=== PATIENT | female | born 1940 | race African-American/Black ===

== ENCOUNTER 2020-05-13 18:03 | Emergency (ER) | payer MEDICARE, SELFPAY ==
[2020-05-13 18:06] VITALS: PULSE 104; RESP 20; TEMP 36.8; O2SAT 100
--- NOTE | 2020-05-13 18:09 | PC.NURSE ---
Attempted to obtain blood pressure x2 without success due to pt movement and removing the cuff. Pt refused BP.
--- NOTE | 2020-05-13 18:14 | ED.DENTAL ---
HPI - Dental/Oral General Chief complaint: Dental/Oral Stated complaint: TOOTH PAIN Time Seen by Provider: 05/13/20 18:14 Source: patient, EMS and RN notes reviewed Limitations: no limitations History of Present Illness HPI Narrative: Patient is 79 years old -[place] female came from assisted living with tooth pain at the right upper side, intermittent, for the last 4 weeks, patient was seen by a dentist recently and was told that there is nothing wrong with her teeth. Patient denies any fever, chills, nausea, vomiting, chest pain, shortness of breath, back pain, headache. Related Data Home Medications Medication Instructions Recorded Confirmed amlodipine 10 mg tablet 10 mg PO DAILY 02/01/19 aspirin 81 mg chewable tablet 81 mg PO DAILY 02/01/19 atorvastatin 40 mg tablet 40 mg PO DAILY 02/01/19 blood sugar diagnostic #10 each 02/01/19 ergocalciferol (vitamin D2) 1,250 50,000 unit PO WEEKLY 02/01/19 mcg (50,000 unit) capsule hydralazine 25 mg tablet 25 mg PO .BID with food tablet 02/01/19 insulin glargine 100 unit/mL (3 See Rx Instructions .ROUTE .COMPLEX 02/01/19 mL) subcutaneous pen insulin lispro 100 unit/mL See Rx Instructions .ROUTE .COMPLEX 02/01/19 subcutaneous pen latanoprost 0.005 % eye drops See Rx Instructions .ROUTE .COMPLEX 02/01/19 levothyroxine 100 mcg tablet 100 mcg PO DAILY 02/01/19 pen needle, diabetic 32 gauge x #50 each 02/01/19 3/16 Allergies Allergy/AdvReac Type Severity Reaction Status Date / Time cephalexin Allergy Unknown Unknown Verified 05/13/20 18:11 Cephalosporins Allergy Unknown Unknown Verified 05/13/20 18:11 codeine Allergy Unknown Unknown Verified 05/13/20 18:11 diazepam Allergy Unknown Unknown Verified 05/13/20 18:11 meperidine Allergy Unknown Unknown Verified 05/13/20 18:11 Penicillins Allergy Unknown Unknown Verified 05/13/20 18:11 Sulfa (Sulfonamide Allergy Unknown Unknown Verified 05/13/20 18:11 Antibiotics) sulfanilamide Allergy Unknown Unknown Verified 05/13/20 18:11 Review of Systems Review of Systems: Narrative: CONSTITUTIONAL: Denies fever, chills, or sweats. EYES: Denies visual changes, redness, or discharge. ENT: Denies rhinorrhea, congestion, sore throat, or otalgia. CARDIOVASCULAR: Denies chest pain, palpitations, or edema. RESPIRATORY: Denies cough or dyspnea. SKIN: Denies rash or itching. MUSCULOSKELETAL: Denies back pain, joint pain, or myalgia. NEUROLOGIC: Denies headache, numbness, or weakness. PSYCHIATRIC: Denies anxiety or depression. [facility] Past Medical History Medical History Anemia Ankle fracture, left Breast cancer CVA (cerebral vascular accident) Depression Diabetes mellitus GERD (gastroesophageal reflux disease) Glaucoma Hip fracture, right HLD (hyperlipidemia) HTN (hypertension) Hypothyroid Migraine Osteoporosis Pneumonia Tuberculosis UTI (urinary tract infection) Surgical History Surgical History H/O bilateral cataract extraction H/O total mastectomy of left breast H/O: hysterectomy History of reconstruction of left breast Hx of appendectomy Family History Family History Sibling Hypertension Carcinoma of colon Family history of thyroid disease Family history of glaucoma Asthma Family history of congestive heart failure Father Family history of coronary artery disease, Onset Age: 72 Patient's father is Other Diabetes mellitus Family history of malignant neoplasm Family history of malignant neoplasm of male breast Social History Social History Smoking status: Never smoker Alcohol intake: never Exam Narrative: Exam Narrative: General appearance: Well-developed, well-nourished Skin: Normal color Head: Normocephalic, nontraumatic Eyes: Clear conjunctiva
[2020-05-13] MEDS: ACETAMINOPHEN 325 MG TABLET 650 MG PO (18:32)
[2020-05-13] MEDS: IBUPROFEN 600 MG TABLET PO (18:33)
--- NOTE | 2020-05-13 18:35 | PC.NURSE ---
Called [place] [facility] to update them on pt's discharge status. No transportation available to come shrimp picker pt. Called pt's sister who also says she is unable to shrimp picker pt. Pt states there is nobody else she can call for a ride.
[2020-05-13 19:44] VITALS: BP 142/81; PULSE 94; RESP 16; O2SAT 99
== END 2020-05-13 19:46 ==
PROVIDERS: Emergency Provider Emergency Medicine; PCP Emergency Medicine
DX: K08.89 Other specified disorders of teeth and supporting structures (principal); E78.5 Hyperlipidemia, unspecified; I10 Essential (primary) hypertension; E11.9 Type 2 diabetes mellitus without complications; E03.9 Hypothyroidism, unspecified; H40.9 Unspecified glaucoma; K21.9 Gastro-esophageal reflux disease without esophagitis; M81.0 Age-related osteoporosis without current pathological fracture; Z85.3 Personal history of malignant neoplasm of breast; Z86.73 Personal history of transient ischemic attack (TIA), and cerebral infarction without residual deficits; Z87.440 Personal history of urinary (tract) infections; Z79.4 Long term (current) use of insulin; Z79.82 Long term (current) use of aspirin; Z98.42 Cataract extraction status, left eye; Z98.41 Cataract extraction status, right eye; Z90.12 Acquired absence of left breast and nipple
CPT/HCPCS: 99283; A9270

== ENCOUNTER 2020-11-02 15:41 | Emergency (ER) | payer MEDICARE, SELFPAY ==
--- NOTE | ~2020-11-02 | XR_ITS ---
EXAMINATION: XR chest 2V 11/02/2020 17:28 INDICATION: Leukocytosis PROCEDURE: AP and lateral views of the chest COMPARISON: Comparison to multiple prior studies sequentially, with oldest reviewed study dated 05/21. FINDINGS: The lungs are clear. The cardiomediastinal silhouette is within normal limits. There are no pleural effusions. There is no pneumothorax suspected. There are surgical clips in the left axil la. IMPRESSION: 1: NO ACUTE CARDIOPULMONARY DISEASE. Reviewed, dictated and finalized at location A.
[2020-11-02 15:44] VITALS: BP 180/82; PULSE 88; RESP 16; TEMP 36.7; O2SAT 100
[2020-11-02 15:52] LABS: Glucose Point of Care 97 mg/dl (65-105)
[2020-11-02 16:01] LABS: Hemoglobin 9.7 g/dL (12.0-15.0); Mean Corpuscular HGB Conc 27.7 g/dl (32-36); Mean Corpuscular Hemoglobin 17.3 pg (26-34); Mean Corpuscular Volume 62.4 fl (80-100); Platelet Count Result 427 k/mm3 (150-375); Red Blood Count 5.61 M/mm3 (4.2-5.4); Red Cell Distribution Width 21.9 % (11.5-14.5); White Blood Count 15.4 K/mm3 (4.5-10.0)
--- NOTE | 2020-11-02 16:01 | ED.GENADULT ---
HPI - General Adult General Chief complaint: Recheck/Abnormal Lab/Rx Stated complaint: elevated WBC Time Seen by Provider: 11/02/20 15:45 Source: patient History of Present Illness HPI narrative: Patient is 80 y/o female sent here abnormal labs. She reportedly had high WBC. Patient states that she feels well and she was told that she had a infection. Related Data Home Medications Medication Instructions Recorded Confirmed amlodipine 10 mg tablet 10 mg PO DAILY 02/01/19 blood sugar diagnostic #10 each 02/01/19 insulin glargine 100 unit/mL (3 45 unit SUBCUT HS 02/01/19 mL) subcutaneous pen insulin lispro 100 unit/mL See Rx Instructions .ROUTE .COMPLEX 02/01/19 subcutaneous pen pen needle, diabetic 32 gauge x #50 each 02/01/1905/09 citalopram 20 mg PO DAILY 11/02/20 clonidine 1 patch TRANSDERMAL WEEKLY 11/02/20 levothyroxine 112 mcg PO DAILY 11/02/20 Allergies Allergy/AdvReac Type Severity Reaction Status Date / Time cephalexin Allergy Unknown Unknown Verified 11/02/20 16:00 Cephalosporins Allergy Unknown Unknown Verified 11/02/20 16:00 codeine Allergy Unknown Unknown Verified 11/02/20 16:00 diazepam Allergy Unknown Unknown Verified 11/02/20 16:00 meperidine Allergy Unknown Unknown Verified 11/02/20 16:00 Penicillins Allergy Unknown Unknown Verified 11/02/20 16:00 Sulfa (Sulfonamide Allergy Unknown Unknown Verified 11/02/20 16:00 Antibiotics) sulfanilamide Allergy Unknown Unknown Verified 11/02/20 16:00 Review of Systems Constitutional: Constitutional: Denies chills, Denies fever(s), Denies headache(s) and Denies weakness Eyes: Eyes: Denies blurry vision ENT: Denies headache(s) and Denies neck pain Cardiovascular: Cardiovascular: Denies chest pain and Denies dyspnea Respiratory: Respiratory: Denies cough and Denies dyspnea Gastrointestinal: Gastrointestinal: Denies abdominal pain, Denies diarrhea, Denies nausea and Denies vomiting Genitourinary: Genitourinary: Denies hematuria and Denies dysuria Musculoskeletal: Musculoskeletal: Denies back pain and Denies neck pain Neurologic: Denies headache(s) and Denies weakness [facility] Past Medical History Medical History Anemia Ankle fracture, left Breast cancer CVA (cerebral vascular accident) Depression Diabetes mellitus GERD (gastroesophageal reflux disease) Glaucoma Hip fracture, right HLD (hyperlipidemia) HTN (hypertension) Hypothyroid Migraine Osteoporosis Pneumonia Tuberculosis UTI (urinary tract infection) Surgical History Surgical History H/O bilateral cataract extraction H/O total mastectomy of left breast H/O: hysterectomy History of reconstruction of left breast Hx of appendectomy Family History Family History Sibling Hypertension Carcinoma of colon Family history of thyroid disease Family history of glaucoma Asthma Family history of congestive heart failure Father Family history of coronary artery disease, Onset Age: 72 Patient's father is Other Diabetes mellitus Family history of malignant neoplasm Family history of malignant neoplasm of male breast Social History Social History Smoking status: Never smoker Alcohol intake: never Exam Const: General: no acute distress and well developed Orientation/consciousness: oriented to person, oriented to place, oriented to time and patient oriented x3 HENMT: Head: normocephalic Ears: external ears normal General nose exam: Normal external nose present Eyes: General: appearance normal, both eyes and all related structures Conjunctivae: conjunctivae normal Neck: Neck: normal visual inspection and full ROM Chest: Chest palpation & inspection: normal inspection of the chest and no tenderness Resp: Effort & Inspection: n
[2020-11-02 16:29] LABS: Band Neutrophils Percent 1 % (0-6); Eosinophils Absolute Manual 0.15 K/mm3 (0.02-0.5); Eosinophils Percent Manual 1 % (0-4); Lymphocytes Absolute Manual 6.77 K/mm3 (1.1-4.5); Monocytes Absolute Manual 0.92 K/mm3 (0.1-0.90); Monocytes Percent Manual 6 % (3-9); Neutrophils Absolute Manual 7.54 K/mm3 (1.7-7.2); Neutrophils Percent Manual 48 % (46-73); Total Cells Counted 100
[2020-11-02 16:30] LABS: Anisocytosis 3+ (NORMAL); Hypochromasia 1+ (NORMAL); Platelet Estimate Increased (Adequate)
[2020-11-02 16:36] LABS: Anion Gap 5 mmol/L (8-16); Blood Urea Nitrogen 17 mg/dL (7-17); Calcium 8.8 mg/dL (8.4-10.2); Carbon Dioxide 25 mmol/L (22-30); Chloride 107 mmol/L (98-107); Estimated CRCL calculation 46 ml/min; Estimated Glomerular Filt Rate > 60; Glucose 90 mg/dL (65-110); Potassium 3.6 mmol/L (3.4-5.0); Sodium 137 mmol/L (137-145)
[2020-11-02 17:42] LABS: Add Urine Microscopic? YES; Appearance Urine Clear (Clear); Bilirubin Urine Negative (Negative); Blood Urine Negative (Negative); Color Urine Yellow (Yellow); Glucose Urine UA Negative (Negative); Ketones Urine Negative (Negative); Leukocyte Esterase Ur Negative LEU/UL (Negative); Mucus Urine Few /lpf; Nitrate Urine Negative (Negative); Protein Urine Negative (Negative); RBC Urine 0-2 /hpf (0-2); Specific Grav Ur 1.023 (1.001-1.035); Squamous Epithelial Cell Urine Occasional /hpf (Few); WBC Urine 0-3 /hpf
--- NOTE | 2020-11-02 18:10 | PC.NURSE ---
pts sister zack contacted. states will be unable to take pt home at this time. [facility] contacted
[2020-11-02 18:53] VITALS: BP 196/88; PULSE 94; RESP 18; O2SAT 100
== END 2020-11-02 18:45 ==
PROVIDERS: Emergency Provider Emergency Medicine; PCP Emergency Medicine
DX: D72.829 Elevated white blood cell count, unspecified (principal); E11.9 Type 2 diabetes mellitus without complications; H40.9 Unspecified glaucoma; E78.5 Hyperlipidemia, unspecified; I10 Essential (primary) hypertension; E03.9 Hypothyroidism, unspecified; K21.9 Gastro-esophageal reflux disease without esophagitis; M81.0 Age-related osteoporosis without current pathological fracture; Z85.3 Personal history of malignant neoplasm of breast; Z86.73 Personal history of transient ischemic attack (TIA), and cerebral infarction without residual deficits; Z87.01 Personal history of pneumonia (recurrent); Z87.440 Personal history of urinary (tract) infections; Z98.42 Cataract extraction status, left eye; Z98.41 Cataract extraction status, right eye; Z90.12 Acquired absence of left breast and nipple; Z79.4 Long term (current) use of insulin
CPT/HCPCS: 36415; 71046; 80048; 81001; 82948; 85025; 85055; 87040; 99283

== ENCOUNTER 2021-04-28 16:10 | Emergency (ER) | payer MEDICARE, SELFPAY ==
--- NOTE | ~2021-04-28 | XR_ITS ---
XR humerus LT 04/28/2021 16:50 INDICATION: Left arm pain PROCEDURE: 2 views left humerus COMPARISON: No prior studies for comparison. FINDINGS: Fracture, dislocation or subluxation is not identified. The soft tissues appear within norm al limits. No foreign bodies are identified. IMPRESSION: 1: NO ACUTE BONE OR JOINT ABNORMALITY IDENTIFIED. Reviewed, dictated and finalized at location A. W MACHINE SET UP OPERATOR
--- NOTE | ~2021-04-28 | XR_ITS ---
XR chest 1V portable 04/28/2021 16:52 Indication: Cough. Hypertension. Procedure: AP portable chest Comparison: Comparison to multiple prior studies sequentially, with oldest reviewed study dated 07/26/2017. Findings: Patchy bilateral airspace disease, compatible with pneumonia. Heart size normal. No pleural effusion or pneumothorax. No acute osseous abnormality. Impression: 1: Patchy bilateral airspace disease, compatible with pneumonia. Reviewed, dictated and finalized at location A. TRONIC PREPRESS SYSTEM OPERATOR Impression: 1: Patchy bilateral airspace disease, compatible with pneumonia.
[2021-04-28 16:16] VITALS: BP 141/108; PULSE 92; RESP 18; TEMP 36.4; O2SAT 100
--- NOTE | 2021-04-28 16:38 | ECG_ITS ---
Measurements Intervals [place] Rate: 91 P: 50 TX: 170 QRS: -27 QRSD: 82 T: 82 QT: 290 QTc: 357 Interpretive Statements SINUS RHYTHM BORDERLINE LEFT AXIS DEVIATION [QRS AXIS < -20] NONSPECIFIC ST-WAVE ABNORMALITY BORDERLINE ECG NO SIGNIFICANT CHANGE COMPARED TO ECG 02/17/2019 08:19:47 Electronically Signed On 04-29-2021 11:00:21 AUTOMATIC SERGING MACHINE OPERATOR by Elliot Lott M.D.
--- NOTE | 2021-04-28 17:09 | ED.AMS ---
HPI - Altered Mental Status General Chief Complaint: Altered Mental Status Stated Complaint: altered Time Seen by Provider: 04/28/21 16:23 Source: patient and EMS Mode of arrival: EMS History of Present Illness HPI narrative: This is a 80 year old female with history of CVA with left side hemiparesis, ataxia, hypertension who presents for evaluation of being sassy . Nursing staff reported that patient has been having left arm pain, and they have been offering her tylenol. They report that she refuses to take tylenol and she became sassy. Patient reports she has had left arm pain intermittently since she suffered her stroke. She denies having any pain now. She admits to declining tylenol because it does not work, and she states a cream helps her pain during physical therapy. Patient is oriented to person and place which is her normal mentation. She has cough but she denies chest pain, shortness of breath, abdominal pain, headache, nausea. Patient denies any recent falls or trauma. Related Data Home Medications Medication Instructions Recorded Confirmed amlodipine 10 mg tablet 10 mg PO DAILY 02/01/19 blood sugar diagnostic #10 each 02/01/19 insulin glargine 100 unit/mL (3 45 unit SUBCUT HS 02/01/19 mL) subcutaneous pen insulin lispro 100 unit/mL See Rx Instructions .ROUTE .COMPLEX 02/01/19 subcutaneous pen pen needle, diabetic 32 gauge x #50 each 02/01/1905/09 citalopram 20 mg PO DAILY 11/02/20 clonidine 1 patch TRANSDERMAL WEEKLY 11/02/20 levothyroxine 112 mcg PO DAILY 11/02/20 Allergies Allergy/AdvReac Type Severity Reaction Status Date / Time cephalexin Allergy Unknown Unknown Verified 11/02/20 16:00 Cephalosporins Allergy Unknown Unknown Verified 11/02/20 16:00 codeine Allergy Unknown Unknown Verified 11/02/20 16:00 diazepam Allergy Unknown Unknown Verified 11/02/20 16:00 meperidine Allergy Unknown Unknown Verified 11/02/20 16:00 Penicillins Allergy Unknown Unknown Verified 11/02/20 16:00 Sulfa (Sulfonamide Allergy Unknown Unknown Verified 11/02/20 16:00 Antibiotics) sulfanilamide Allergy Unknown Unknown Verified 11/02/20 16:00 Review of Systems Review of Systems: All systems reviewed & are unremarkable except as noted in HPI and below Constitutional: Constitutional: Denies chills and Denies fever(s) Cardiovascular: Cardiovascular: Denies chest pain Respiratory: Respiratory: Reports cough, Denies dyspnea and Denies wheezing Gastrointestinal: Gastrointestinal: Denies abdominal pain, Denies diarrhea, Denies nausea and Denies vomiting PMFSH Past Medical History Medical History Anemia Ankle fracture, left Breast cancer CVA (cerebral vascular accident) Depression Diabetes mellitus GERD (gastroesophageal reflux disease) Glaucoma Hip fracture, right HLD (hyperlipidemia) HTN (hypertension) Hypothyroid Migraine Osteoporosis Pneumonia Tuberculosis UTI (urinary tract infection) Surgical History Surgical History H/O bilateral cataract extraction H/O total mastectomy of left breast H/O: hysterectomy History of reconstruction of left breast Hx of appendectomy Family History Family History Sibling Hypertension Carcinoma of colon Family history of thyroid disease Family history of glaucoma Asthma Family history of congestive heart failure Father Family history of coronary artery disease, Onset Age: 72 Patient's father is Other Diabetes mellitus Family history of malignant neoplasm Family history of malignant neoplasm of male breast Social History Social History Smoking status: Never smoker Alcohol intake: never Exam Const: General: alert Orientation/consciousness: patient oriented x3 Eyes: EOM: EOMs intact bilate
[2021-04-28 17:10] LABS: Hematocrit 40.7 % (37.0-47.0); Hemoglobin 12.2 g/dL (12.0-15.0); Immature Platelet Fraction Pct 16.5 % (0.9-11.2); Mean Corpuscular Hemoglobin 21.8 pg (26-34); Mean Corpuscular Volume 72.7 fl (80-100); Platelet Count Result 250 k/mm3 (150-375); Red Cell Distribution Width 19.6 % (11.5-14.5); White Blood Count 9.6 K/mm3 (4.5-10.0)
[2021-04-28 17:19] LABS: Alanine Aminotransferase 26 U/L (4-35); Albumin Level 3.3 g/dL (3.5-5.1); Alkaline Phosphatase 121 U/L (38-126); Anion Gap 5 mmol/L (8-16); Aspartate Amino Transferase 29 U/L (14-36); Bilirubin,Total 0.6 mg/dL (0.2-1.3); Blood Urea Nitrogen 14 mg/dL (7-17); Calcium 8.6 mg/dL (8.4-10.2); Carbon Dioxide 29 mmol/L (22-30); Chloride 105 mmol/L (98-107); Estimated Glomerular Filt Rate > 60; Glucose 133 mg/dL (65-110); INR 1.1; Potassium 3.3 mmol/L (3.4-5.0); Prothrombin Time 13.6 Seconds (11.1-14.7); Sodium 139 mmol/L (137-145)
[2021-04-28 17:20] LABS: Partial Thromboplastin Time 27.5 SECONDS (22.3-36.8)
[2021-04-28 17:38] LABS: Atypical Lymphocytes Present; Band Neutrophils Percent 3 % (0-6); Eosinophils Absolute Manual 0.09 K/mm3 (0.02-0.5); Eosinophils Percent Manual 1 % (0-4); Large Platelets Present; Lymphocytes Absolute Manual 3.26 K/mm3 (1.1-4.5); Monocytes Absolute Manual 0.48 K/mm3 (0.1-0.90); Monocytes Percent Manual 5 % (3-9); Neutrophils Absolute Manual 5.76 K/mm3 (1.7-7.2); Neutrophils Percent Manual 57 % (46-73); Platelet Estimate Adequate (Adequate); Total Cells Counted 100
[2021-04-28 17:39] LABS: Anisocytosis 3+ (NORMAL); Hypochromasia 1+ (NORMAL)
[2021-04-28 17:42] LABS: Add Urine Microscopic? YES; Appearance Urine Clear (Clear); Bilirubin Urine Negative (Negative); Blood Urine Negative (Negative); Color Urine Yellow (Yellow); Glucose Urine UA 1+ mg/dL (Negative); Ketones Urine Negative (Negative); Leukocyte Esterase Ur Negative LEU/UL (Negative); Nitrate Urine Negative (Negative); Protein Urine Negative (Negative); RBC Urine 0-2 /hpf (0-2); Specific Grav Ur 1.026 (1.001-1.035); WBC Urine 0-3 /hpf
[2021-04-28 17:43] LABS: Acanthocytes 1+ (NORMAL)
[2021-04-28 17:44] LABS: Ovalocytes 1+ (NORMAL)
[2021-04-28 18:00] LABS: SARS-CoV-2 RNA PCR Negative
[2021-04-28] MEDS: POTASSIUM CHLORIDE 20 MEQ PACKET (FOR LIQUID) 40 MEQ PO (18:19)
[2021-04-28 18:37] VITALS: BP 149/89; PULSE 89; RESP 18; O2SAT 100
[2021-04-28 19:00] VITALS: BP 157/80; PULSE 93; RESP 20; O2SAT 99
[2021-04-28 21:00] VITALS: BP 158/74; PULSE 89; RESP 20; O2SAT 100
[2021-04-28 23:00] VITALS: BP 155/85; PULSE 90; RESP 19; O2SAT 100
[2021-04-29] VITALS: BP 177/87; PULSE 89; RESP 20; O2SAT 99
[2021-04-29 04:04] VITALS: BP 177/91; PULSE 93; RESP 16; O2SAT 100
--- NOTE | 2021-04-29 06:40 | PC.NURSE ---
IV removed, cannula intact. Covered with gauze and tape.
== END 2021-04-29 06:45 ==
PROVIDERS: Emergency Provider General Practice; PCP Emergency Medicine
DX: J18.9 Pneumonia, unspecified organism (principal); E87.6 Hypokalemia; M79.602 Pain in left arm; Z20.822 Contact with and (suspected) exposure to COVID-19; I69.954 Hemiplegia and hemiparesis following unspecified cerebrovascular disease affecting left non-dominant side; I69.993 Ataxia following unspecified cerebrovascular disease; I10 Essential (primary) hypertension; E11.9 Type 2 diabetes mellitus without complications; E78.5 Hyperlipidemia, unspecified; M81.0 Age-related osteoporosis without current pathological fracture; K21.9 Gastro-esophageal reflux disease without esophagitis; H40.9 Unspecified glaucoma; E03.9 Hypothyroidism, unspecified; F32.A Depression, unspecified; Z87.440 Personal history of urinary (tract) infections; Z87.01 Personal history of pneumonia (recurrent); Z85.3 Personal history of malignant neoplasm of breast; Z86.11 Personal history of tuberculosis; Z79.4 Long term (current) use of insulin; Z98.42 Cataract extraction status, left eye; Z98.41 Cataract extraction status, right eye; Z90.12 Acquired absence of left breast and nipple; R94.31 Abnormal electrocardiogram [ECG] [EKG]
CPT/HCPCS: 36415; 51701; 71045; 73060; 80053; 81001; 85025; 85055; 85610; 85730; 93005; 99284; A9270; C9803; U0003; U0005

== ENCOUNTER 2021-08-21 10:16 | Emergency (ER) | payer MEDICARE, MEDICAID, SELFPAY ==
--- NOTE | ~2021-08-21 | XR_ITS ---
EXAMINATION: XR knee LT 2V DATE: 08/21/2021 12:06 INDICATION: Left knee pain after fall, initial encounter TECHNIQUE: Two views of the left knee were obtained. COMPARISON: None. FINDINGS: A lucency projects at the upper outer aspect of the left knee which could involve the العلي la or femoral condyle. There is mild tricompartmental osteoarthritis characterized by tiny marginal o steophytes. There is a large joint effusion. Soft tissue swelling is present. IMPRESSION: 1. Lucency of the upper outer knee which could reflect a nondisplaced fracture of the patellar distal femur. Assessment limited on this two view examination. Reviewed, dictated and finalized at location A.
[2021-08-21 10:14] VITALS: BP 143/91; PULSE 78; RESP 18; TEMP 36.8; O2SAT 100
--- NOTE | 2021-08-21 11:32 | PC.NURSE ---
Palma (sister - POA) requests update on pt. CELL # [phone]
--- NOTE | 2021-08-21 11:36 | ED.LOWEXIN ---
HPI - Extremity Injury (Lower) General Chief Complaint: Extremity Injury, Lower Stated Complaint: L patellar fx Time Seen by Provider: 08/21/21 11:24 History of Present Illness HPI Narrative: 81-year-old female with a history of CVA with residual left sided weakness here from her nursing facility for evaluation of left knee pain after a fall this morning. Patient states she was reaching for an item on her bedside table when she reached too far and rolled off of the bed, striking her knee. Currently reporting knee pain. XR at nursing facility showed possible patellar fracture. Patient does not usually walk and is a full assist for transfers due to her chronic L sided weakness. She has intact sensation distal to her knee pain and is able to move her foot. Related Data Home Medications Medication Instructions Recorded Confirmed citalopram 20 mg tablet 20 mg PO DAILY 11/02/20 clonidine 0.3 mg/24 hr weekly 1 patch transdermal WEEKLY 11/02/20 transdermal patch levothyroxine 112 mcg capsule 112 mcg PO DAILY 11/02/20 Allergies Allergy/AdvReac Type Severity Reaction Status Date / Time cephalexin Allergy Unknown Unknown Verified 08/21/21 10:26 Cephalosporins Allergy Unknown Unknown Verified 08/21/21 10:26 codeine Allergy Unknown Unknown Verified 08/21/21 10:26 diazepam Allergy Unknown Unknown Verified 08/21/21 10:26 meperidine Allergy Unknown Unknown Verified 08/21/21 10:26 Penicillins Allergy Unknown Unknown Verified 08/21/21 10:26 Sulfa (Sulfonamide Allergy Unknown Unknown Verified 08/21/21 10:26 Antibiotics) sulfanilamide Allergy Unknown Unknown Verified 08/21/21 10:26 [facility] Past Medical History Medical History Anemia Ankle fracture, left Breast cancer CVA (cerebral vascular accident) Depression Diabetes mellitus GERD (gastroesophageal reflux disease) Glaucoma Hip fracture, right HLD (hyperlipidemia) HTN (hypertension) Hypothyroid Migraine Osteoporosis Pneumonia Tuberculosis UTI (urinary tract infection) Surgical History Surgical History H/O bilateral cataract extraction H/O total mastectomy of left breast H/O: hysterectomy History of reconstruction of left breast Hx of appendectomy Family History Family History Sibling Hypertension Carcinoma of colon Family history of thyroid disease Family history of glaucoma Asthma Family history of congestive heart failure Father Family history of coronary artery disease, Onset Age: 72 Patient's father is Other Diabetes mellitus Family history of malignant neoplasm Family history of malignant neoplasm of male breast Social History Social History Smoking status: Never smoker Alcohol intake: never Exam Narrative: APPEARANCE: No acute distress, nontoxic, resting in bed EYES: EOMI HEENT: Normocephalic, atraumatic, OMM RESPIRATORY: No respiratory distress Clear to auscultation bilaterally with no rhonchi wheezing or rales. CARDIOVASCULAR: Doppler signals heard to DP/PT bilaterally. Regular rate and rhythm without murmurs rubs or gallops. ABDOMINAL: Soft, nontender, nondistended, no rebound or guarding MUSCULOSKELETAL: Tender to palpation over proximal patella, very mild swelling. No tenderness to palpation over left foot, ankle, femur. No clubbing, cyanosis or edema. NEURO: L sided weakness, slurred speech. Awake and alert. Following commands. SKIN: Warm, dry. No rashes lesions or abrasions PSYCHIATRIC: Normal affect/mood, Course Vital Signs Vital signs: Vital Signs Temperature 98.3 F 08/21/21 10:14 Pulse Rate 78 08/21/21 10:14 Respiratory Rate 18 08/21/21 10:14 Blood Pressure 143/91 H 08/21/21 10:14 Pulse Oximetry 100 08/21/21 10:14 Oxygen Delivery Room Air 08/21/21 10:14 Temperature 98.3 F
[2021-08-21 12:32] VITALS: BP 144/92; PULSE 72; RESP 17; O2SAT 100
[2021-08-21] MEDS: ACETAMINOPHEN 325 MG TABLET 650 MG PO (13:47)
[2021-08-21 13:48] VITALS: BP 139/89; PULSE 77; RESP 15; O2SAT 99
--- NOTE | 2021-08-21 14:50 | PC.NURSE ---
Pt moved to and placed on fall alarm. Awaiting transport.
== END 2021-08-21 15:41 ==
PROVIDERS: Emergency Provider Emergency Medicine; PCP Emergency Medicine
DX: S82.002A Unspecified fracture of left patella, initial encounter for closed fracture (principal); I69.954 Hemiplegia and hemiparesis following unspecified cerebrovascular disease affecting left non-dominant side; E11.9 Type 2 diabetes mellitus without complications; E78.5 Hyperlipidemia, unspecified; I10 Essential (primary) hypertension; E03.9 Hypothyroidism, unspecified; M81.0 Age-related osteoporosis without current pathological fracture; K21.9 Gastro-esophageal reflux disease without esophagitis; Z85.3 Personal history of malignant neoplasm of breast; Z87.440 Personal history of urinary (tract) infections; Z86.2 Personal history of diseases of the blood and blood-forming organs and certain disorders involving the immune mechanism; Z87.01 Personal history of pneumonia (recurrent); Z98.42 Cataract extraction status, left eye; Z98.41 Cataract extraction status, right eye; Z90.12 Acquired absence of left breast and nipple; Z79.4 Long term (current) use of insulin; W06.XXXA Fall from bed, initial encounter
CPT/HCPCS: 73560; 99284; A9270

== ENCOUNTER 2021-10-08 17:27 | Emergency (ER) | payer MEDICARE, MEDICAID, SELFPAY ==
[2021-10-08] VITALS (9 sets, daily range): BP systolic 147–176; BP diastolic 63–111; PULSE 79–85; RESP 14–18; TEMP 36.6; O2SAT 97–100
--- NOTE | ~2021-10-08 | CT_ITS ---
EXAMINATION: CT cervical spine wo con DATE: 10/08/2021 18:25 INDICATION: Head injury. TECHNIQUE: Computed tomography (CT) of the cervical spine was performed without intravenous contrast. Automated exposure control and iterative reconstruction technique were employed. The dose-length pro duct was 445.49 mGy-cm. COMPARISON: None FINDINGS: Calcified mediastinal lymph nodes are consistent with old granulomatous disease. There is a multinodular goiter. There is 2 mm anterolisthesis of C3 on C4 and C4 on C5 and 2 mm retrolisthesis of C6 on C7. Vertebral body heights are normal. There is mildly decreased disc height at C3-C4 and C4 -C5, moderately decreased disc height at C5-C6, and severely decreased disc height at C6-C7. The foll owing disc levels are specifically discussed: C2-C3: There is mild bilateral uncovertebral joint osteoarthritis. There is severe right and mild lef t facet joint osteoarthritis. There is mild right neural foraminal stenosis. There is no central amado l stenosis. C3-C4: There is mild bilateral uncovertebral joint osteoarthritis. There is severe bilateral facet nimisha int osteoarthritis. There is mild bilateral neural foraminal stenosis. There is mild central canal st enosis. C4-C5: There is moderate right and mild left uncovertebral joint osteoarthritis. There is severe righ t and mild left facet joint osteoarthritis. There is mild bilateral neural foraminal stenosis. There is mild central canal stenosis. C5-C6: There is severe bilateral uncovertebral joint osteoarthritis. There is mild bilateral facet nimisha int osteoarthritis. There is mild bilateral neural foraminal stenosis. There is mild central canal st enosis. C6-C7: There is severe bilateral uncovertebral joint osteoarthritis. There is mild bilateral facet nimisha int osteoarthritis. There is moderate bilateral neural foraminal stenosis. There is mild central amado l stenosis. C7-T1: There is no uncovertebral joint osteoarthritis. There is moderate bilateral facet joint osteoa rthritis. There is mild bilateral neural foraminal stenosis. There is no central canal stenosis. IMPRESSION: 1. No fracture. 2. Severe cervical spondylosis. Reviewed, dictated and finalized at location A.
--- NOTE | ~2021-10-08 | CT_ITS ---
EXAMINATION: CT brain wo con DATE: 10/08/2021 18:25 INDICATION: Head injury. TECHNIQUE: Computed tomography (CT) of the head was performed without intravenous contrast. The mA wa s adjusted according to patient size. Iterative reconstruction technique was employed. The dose-lengt h product was 605.33 mGy-cm. COMPARISON: Head CT 02/17/2019 FINDINGS: There is a small old infarct in right cerebellum. There are scattered areas of low attenuat ion in the cerebral white matter. There is no intracranial hemorrhage, acute infarction, or abnormal intracranial mass lesion. There are old infarcts in the bilateral basal ganglia and left thalamus. Th e ventricles are normal in size. There is mild mucosal thickening in the paranasal sinuses. There are likely changes of ocular lens replacement surgeries. The mastoid air cells are normal. IMPRESSION: 1. Old infarcts in the right cerebellum, bilateral basal ganglia, and left thalamus. 2. Moderate nonspecific cerebral white matter disease, which likely represents chronic small vessel i schemic disease. Reviewed, dictated and finalized at location A. IMPRESSION: 1. Old infarcts in the right cerebellum, bilateral basal ganglia, and left thal amus. 2. Moderate nonspecific cerebral white matter disease, which likely represents chronic small vessel ischemic disease.
--- NOTE | ~2021-10-08 | XR_ITS ---
EXAMINATION: XR knee LT min 4V DATE: 10/08/2021 18:14 INDICATION: Left knee pain. TECHNIQUE: 5 views of left knee were obtained. COMPARISON: Left knee radiograph 08/21/2021 FINDINGS: There is a nondisplaced stellate fracture of patella. There is sclerosis at a fracture line , consistent with healing. Osteopenia is noted. There is mild tricompartmental osteoarthritis. There is a small knee joint effusion. IMPRESSION: 1. Healing nondisplaced stellate fracture of patella. 2. Mild left knee osteoarthritis. 3. Small left knee joint effusion. Reviewed, dictated and finalized at location A.
--- NOTE | 2021-10-08 17:49 | ED.FALL ---
HPI - Fall General Chief Complaint: Fall Stated Complaint: Ground level fall Time Seen by Provider: 10/08/21 17:48 Source: patient and old records reviewed Mode of arrival: EMS Limitations: no limitations History of Present Illness HPI Narrative: Patient is a 81 y/o female who presents to the ED via EMS with c/o fall. Patient is a resident of [facility]. Hx of CVA with residual speech deficits and left sided weakness. Patient does not ambulate and is a full assist. She reports she was sitting in her wheelchair today and was getting ready to go down to dinner. She states she reached over to get something out of her drawer when she fell forward out of her wheelchair. She landed on her left knee. Complains of pain to the left knee. Denies any other pain. Also hit her head but denies loss of consciousness. No headache, vision changes, dizziness, significant neck pain. No blood thinners. Per patient's old records, she was diagnosed with a left patellar fracture on 08/21. Orthopedics was consulted at that time and recommended Dru bandage for compression. Patient is nonambulatory. Related Data Home Medications Medication Instructions Recorded Confirmed citalopram 20 mg tablet 20 mg PO DAILY 11/02/20 clonidine 0.3 mg/24 hr weekly 1 patch transdermal WEEKLY 11/02/20 transdermal patch levothyroxine 112 mcg capsule 112 mcg PO DAILY 11/02/20 Allergies Allergy/AdvReac Type Severity Reaction Status Date / Time cephalexin Allergy Unknown Unknown Verified 08/21/21 10:26 Cephalosporins Allergy Unknown Unknown Verified 08/21/21 10:26 codeine Allergy Unknown Unknown Verified 08/21/21 10:26 diazepam Allergy Unknown Unknown Verified 08/21/21 10:26 meperidine Allergy Unknown Unknown Verified 08/21/21 10:26 Penicillins Allergy Unknown Unknown Verified 08/21/21 10:26 Sulfa (Sulfonamide Allergy Unknown Unknown Verified 08/21/21 10:26 Antibiotics) sulfanilamide Allergy Unknown Unknown Verified 08/21/21 10:26 Review of Systems Review of Systems: CONSTITUTIONAL: Denies fever. EYES: Denies visual changes. CARDIOVASCULAR: Denies chest pain. RESPIRATORY: Denies dyspnea. GASTROINTESTINAL: Denies abdominal pain, nausea, vomiting. MUSCULOSKELETAL: Reports left knee pain. Denies neck pain, back pain. NEUROLOGIC: Reports head injury, chronic left-sided weakness. Denies LOC, headache, numbness. All systems reviewed & are unremarkable except as noted in HPI and below PMFSH Past Medical History Medical History Anemia Ankle fracture, left Breast cancer CVA (cerebral vascular accident) Depression Diabetes mellitus GERD (gastroesophageal reflux disease) Glaucoma Hip fracture, right HLD (hyperlipidemia) HTN (hypertension) Hypothyroid Migraine Osteoporosis Pneumonia Tuberculosis UTI (urinary tract infection) Surgical History Surgical History H/O bilateral cataract extraction H/O total mastectomy of left breast H/O: hysterectomy History of reconstruction of left breast Hx of appendectomy Family History Family History Sibling Hypertension Carcinoma of colon Family history of thyroid disease Family history of glaucoma Asthma Family history of congestive heart failure Father Family history of coronary artery disease, Onset Age: 72 Patient's father is Other Diabetes mellitus Family history of malignant neoplasm Family history of malignant neoplasm of male breast Social History Social History Smoking status: Never smoker Alcohol intake: never Exam Narrative: GENERAL: Well appearing, well-nourished, non-toxic, in no acute distress. HEAD: Normocephalic, atraumatic. NECK: Supple. No adenopathy, no masses. No significant midline spinal tenderness to palpation. Full ROM. RESPI
== END 2021-10-08 22:09 ==
PROVIDERS: Emergency Provider Emergency Medicine; PCP Emergency Medicine
DX: M25.462 Effusion, left knee (principal); D64.9 Anemia, unspecified; Z85.3 Personal history of malignant neoplasm of breast; F32.9 Major depressive disorder, single episode, unspecified; E11.9 Type 2 diabetes mellitus without complications; I10 Essential (primary) hypertension; E78.5 Hyperlipidemia, unspecified; Z87.440 Personal history of urinary (tract) infections; Z86.73 Personal history of transient ischemic attack (TIA), and cerebral infarction without residual deficits; W05.0XXA Fall from non-moving wheelchair, initial encounter
CPT/HCPCS: 70450; 72125; 73564; 99284

== ENCOUNTER 2021-10-11 07:15 | Emergency (ER) | payer MEDICARE, MEDICAID, SELFPAY ==
[2021-10-11] VITALS (7 sets, daily range): BP systolic 130–173; BP diastolic 70–96; PULSE 71–100; RESP 16–31; TEMP 36.6; O2SAT 99–100
--- NOTE | ~2021-10-11 | CT_ITS ---
EXAMINATION: CT brain wo con INDICATION: Slurred speech, confusion COMPARISON: 10/08/2021 TECHNIQUE: Standard unenhanced head CT. The dose-length product (DLP) was 605.33 mGy-cm. The mA was a djusted according to patient size. Iterative reconstruction technique was employed. FINDINGS: There is no acute intraparenchymal hemorrhage. No evidence of mass lesion. No evidence of a cute infarction. Again noted are lacunar infarcts of the right cerebellum, the bilateral basal gangli a, and the left thalamus. There is mild periventricular and subcortical hypodensity probably related to small vessel ischemic disease. There is mild prominence of the sulci and ventricles related to cer ebral atrophy. Intracranial calcified cerebral atherosclerosis is noted. There are no extra-axial col lections. There is no mass effect or midline shift. Changes in the globes are likely from ocular lens surgery. There is mild mucosal thickening of the paranasal sinuses. IMPRESSION: 1. Areas of prior infarction without acute intracranial abnormality. 2. Age related findings. Reviewed, dictated and finalized at location A.
--- NOTE | ~2021-10-11 | CT_ITS ---
EXAMINATION: CTA BRAIN/CAROTID DATE: 10/11/2021 09:21 INDICATION: Stroke presenting with slurred speech and confusion. TECHNIQUE: Computed tomographic angiography (CTA) of the head and neck was performed with 100 mL Omni paque-350 intravenous contrast. Multiplanar reconstructions and maximum intensity projection 3D-recon structions of the carotid arteries and of the intracranial arteries were created by the technologist on a separate workstation. Automated exposure control and iterative reconstruction technique were emp loyed.The dose-length product was 1131.53 mGy-cm. COMPARISON: Noncontrast head CT dated 10/11/2021 FINDINGS: Carotid arteries: Visualized portion of the thoracic aorta is normal in caliber with no dissection. There is small amou nt of atherosclerotic plaque with 0% stenosis of the right carotid bulb relative to normal distal art margoth lumen diameter (NASCET criteria). There is no evident plaque with 0% stenosis of the left carotid bulb relative to normal distal artery lumen diameter. Mosaic attenuation in the visualized upper monse gs, likely related to partially expiratory phase of imaging with small regions of subsegmental air tr apping related to small airway disease. Left-sided of the muscle lower density likely saline breast i mplant. On the right there is a higher density below the muscle implant with linguini sign suggesting intracapsular implant rupture. This appears chronic with similar findings partially visualized on CT of the abdomen and pelvis dated 10/30/12 . Superior mediastinum is unremarkable. Multinodular goiter. Intracranial arteries The left vertebral artery is dominant. Is atherosclerotic plaque along the bilateral intracranial dora tebral arteries with no significant stenosis on the left and with subjectively moderate 50-70% stenos is on the right although assessment of the degree of stenosis limited by the small caliber of the ves halley. The right vertebral artery appears to terminate at the right posterior inferior cerebellar arter y with the left vertebral artery. Additional supply to the basilar artery. There is mild, <50% stenosis along the basilar artery. The r ight P1 segment is patent. The left posterior cerebral artery appears to be supplied exclusively from the left internal carotid artery via a patent left posterior communicating artery. Prominent atheros clerotic calcifications along the bilateral carotid siphons. There is likely mild <50% stenosis along the left carotid siphon. There is a severe, >70% stenosis at the supraclinoid segment of the right i nternal carotid artery with additional mild to moderate stenosis along the more proximal right caroti d siphon. The bilateral A1 segments are patent. No evident dissection or aneurysms identified. Cerebr al arterial arborization appears symmetric. No abnormally enhancing brain lesions identified. Likely senescent dystrophic calcification is at the bilateral basal ganglia. Small old lacunar infarcts at t he left thalamus and bilateral basal ganglia. IMPRESSION: 1. 0% stenosis of the right carotid bulb relative to normal distal artery lumen diameter (NASCET crit eria). 2. 0% stenosis of the left carotid bulb relative to normal distal artery lumen diameter. 3. Atherosclerotic disease of the intracranial arteries as detailed above most significant for a sasha re >70% stenosis at the supraclinoid portion of the right internal carotid artery and a moderate 50-7 0% stenosis along the smaller caliber right vertebral artery which terminates at the left inferior ce rebellar artery and mild less than 50% stenosis at the left carotid siphon and basilar artery, the la tter supplied exclusively by the dominant left vertebral artery. 4. Multinodular goiter. Reviewed, dictated and finalized at location A.
--- NOTE | 2021-10-11 07:19 | ECG_ITS ---
Measurements Intervals [place] Rate: 100 P: 61 NM: 158 QRS: -28 QRSD: 94 T: 72 QT: 375 QTc: 484 Interpretive Statements SINUS TACHYCARDIA POSSIBLE LEFT ATRIAL ENLARGEMENT [-0.1mV P-WAVE IN V1/V2] BORDERLINE LEFT AXIS DEVIATION [QRS AXIS < -20] MINIMAL ST DEPRESSION [0.025+ mV ST DEPRESSION] ABNORMAL ECG COMPARED TO ECG 04/28/2021 17:24:09 [address] NOW PRESENT ST (T WAVE) DEVIATION NOW PRESENT Electronically Signed On 10-11-2021 9:40:00 CDT by Tani Valdovinos M.D.
[2021-10-11 07:24] LABS: Glucose Point of Care 130 mg/dl (65-105)
--- NOTE | 2021-10-11 07:27 | ED.NEUROSD ---
HPI - Neuro Symptoms/Deficit General Chief Complaint: Suspected CVA Stated Complaint: STROKE LIKE SYMPTOMS, BS 56 Time Seen by Provider: 10/11/21 07:18 History of Present Illness HPI Narrative: 81-year-old female presented emergency department from a local skilled nursing for evaluation of agitation, altered mental status, worsening slurred speech. Patient does have a prior history of CVA with left-sided deficit and slurred speech. Patient states that her speech right now is her normal speech. At the skilled nursing patient was agitated. group home states that the patient did have a few seconds of thrashing activity and then had decreased responsiveness. When EMS arrived patient was alert and oriented and had a blood sugar of 59. Related Data Home Medications Medication Instructions Recorded Confirmed citalopram 20 mg tablet 20 mg PO DAILY 11/02/20 clonidine 0.3 mg/24 hr weekly 1 patch transdermal WEEKLY 11/02/20 transdermal patch levothyroxine 112 mcg capsule 112 mcg PO DAILY 11/02/20 Allergies Allergy/AdvReac Type Severity Reaction Status Date / Time cephalexin Allergy Unknown Unknown Verified 10/11/21 08:52 Cephalosporins Allergy Unknown Unknown Verified 10/11/21 08:52 codeine Allergy Unknown Unknown Verified 10/11/21 08:52 diazepam Allergy Unknown Unknown Verified 10/11/21 08:52 meperidine Allergy Unknown Unknown Verified 10/11/21 08:52 Penicillins Allergy Unknown Unknown Verified 10/11/21 08:52 Sulfa (Sulfonamide Allergy Unknown Unknown Verified 10/11/21 08:52 Antibiotics) sulfanilamide Allergy Unknown Unknown Verified 10/11/21 08:52 Review of Systems Review of Systems: CONSTITUTIONAL: Denies fever, chills, or sweats. EYES: Denies visual changes, redness, or discharge. ENT: Denies rhinorrhea, congestion, sore throat, or otalgia. CARDIOVASCULAR: Denies chest pain, palpitations, or edema. RESPIRATORY: Denies cough or dyspnea. GASTROINTESTINAL: Denies abdominal pain, nausea, vomiting, or diarrhea. GENITOURINARY: Denies dysuria or hematuria. SKIN: Denies rash or itching. MUSCULOSKELETAL: Denies back pain, joint pain, or myalgia. NEUROLOGIC: Left-sided neurologic deficit with slurred speech. [facility] Past Medical History Medical History Anemia Ankle fracture, left Breast cancer CVA (cerebral vascular accident) Depression Diabetes mellitus GERD (gastroesophageal reflux disease) Glaucoma Hip fracture, right HLD (hyperlipidemia) HTN (hypertension) Hypothyroid Migraine Osteoporosis Pneumonia Tuberculosis UTI (urinary tract infection) Surgical History Surgical History H/O bilateral cataract extraction H/O total mastectomy of left breast H/O: hysterectomy History of reconstruction of left breast Hx of appendectomy Family History Family History Sibling Hypertension Carcinoma of colon Family history of thyroid disease Family history of glaucoma Asthma Family history of congestive heart failure Father Family history of coronary artery disease, Onset Age: 72 Patient's father is Other Diabetes mellitus Family history of malignant neoplasm Family history of malignant neoplasm of male breast Social History Social History Smoking status: Never smoker Alcohol intake: never Exam Narrative: APPEARANCE: Well appearing, no pain, no distress, well-nourished. HEAD: normocephalic, atraumatic. EYES: PERRLA/EOMI, conjunctivae clear. NOSE: Normal no drainage EARS:TMS clear with good light reflex. THROAT: Pharynx clear, no exudate. NECK: Supple. No adenopathy, no masses. RESPIRATORY: Airway patent, respirations nonlabored. Clear to auscultation bilaterally, no rales, rhonchi, wheezing. CARDIOVASCULAR: Regular rate and rhythm without murmurs rubs or gallop
[2021-10-11 08:05] LABS: Appearance Urine Clear (Clear); Bilirubin Urine Negative (Negative); Blood Urine Negative (Negative); Color Urine Yellow (Yellow); Glucose Urine UA Trace mg/dL (Negative); Ketones Urine Negative (Negative); Leukocyte Esterase Ur Negative LEU/UL (Negative); Nitrate Urine Negative (Negative); Protein Urine Negative (Negative); Specific Grav Ur 1.015 (1.001-1.035); pH Urine 6.5 (5.0-9.0)
[2021-10-11 08:21] LABS: Mucus Urine Rare /lpf; RBC Urine 0-2 /hpf (0-2); WBC Urine 0-3 /hpf
[2021-10-11 08:27] LABS: Add Urine Microscopic? YES
[2021-10-11 08:30] LABS: Basophils Absolute Auto 0.1 K/mm3 (0.0-0.1); Basophils Percent Auto 0.3 % (0.2-1.2); Eosinophils Absolute Auto 0.1 K/mm3 (0-0.3); Eosinophils Percent Auto 0.7 % (0-4.4); Hematocrit 37.2 % (37.0-47.0); Hemoglobin 11.1 g/dL (12.0-15.0); Immature Granulocyte Absolute 0.07 K/mm3 (0.00-0.031); Immature Granulocyte Percent A 0.5 % (0-0.5); Immature Platelet Fraction Pct 14.2 % (0.9-11.2); Lymphocytes Absolute Auto 2.33 K/mm3 (0.9-3.2); Lymphocytes Percent Auto 15.5 % (18.3-44.2); Mean Corpuscular HGB Conc 29.8 g/dl (32-36); Mean Corpuscular Hemoglobin 21.6 pg (26-34); Mean Corpuscular Volume 72.4 fl (80-100); Monocytes Absolute Auto 0.7 K/mm3 (0.1-0.6); Monocytes Percent Auto 4.4 % (2.6-8.5); Neutrophils Absolute Auto 11.8 K/mm3 (1.3-6.7); Neutrophils Percent Auto 78.6 % (45.5-73.1); Platelet Count Result 326 k/mm3 (150-375); Red Blood Count 5.14 M/mm3 (4.2-5.4); Red Cell Distribution Width 19.9 % (11.5-14.5)
[2021-10-11 08:41] LABS: Alanine Aminotransferase 25 U/L (6-35); Albumin Level 3.3 g/dL (3.5-5.1); Alkaline Phosphatase 116 U/L (38-126); Anion Gap 7 mmol/L (8-16); Aspartate Amino Transferase 32 U/L (14-36); Bilirubin,Total 0.9 mg/dL (0.2-1.3); Blood Urea Nitrogen 11 mg/dL (7-17); Calcium 9.2 mg/dL (8.4-10.2); Carbon Dioxide 25 mmol/L (22-30); Chloride 102 mmol/L (98-107); Estimated CRCL calculation 58 ml/min; Estimated Glomerular Filt Rate > 60; Glucose 210 mg/dL (65-110); Sodium 134 mmol/L (137-145)
[2021-10-11 08:53] LABS: Crenated RBC 1+ (NORMAL); Platelet Estimate Adequate (Adequate)
[2021-10-11 08:54] LABS: Acanthocytes 1+ (NORMAL); Anisocytosis 1+ (NORMAL)
[2021-10-11] MEDS: ASPIRIN 81 MG CHEWABLE TABLET 324 MG PO (10:21)
[2021-10-11 10:40] LABS: Glucose Point of Care 252 mg/dl (65-105)
--- NOTE | 2021-10-11 10:55 | PC.NURSE ---
[facility] accepted bls return to [facility] - 12:30 trip # [phone]
== END 2021-10-11 12:03 ==
PROVIDERS: Emergency Provider Emergency Medicine; PCP Family Medicine
DX: E11.649 Type 2 diabetes mellitus with hypoglycemia without coma (principal); R41.0 Disorientation, unspecified; I69.928 Other speech and language deficits following unspecified cerebrovascular disease; D64.9 Anemia, unspecified; H40.9 Unspecified glaucoma; E78.5 Hyperlipidemia, unspecified; I10 Essential (primary) hypertension; E03.9 Hypothyroidism, unspecified; K21.9 Gastro-esophageal reflux disease without esophagitis; M81.0 Age-related osteoporosis without current pathological fracture; Z85.3 Personal history of malignant neoplasm of breast; Z87.01 Personal history of pneumonia (recurrent); Z87.440 Personal history of urinary (tract) infections; Z98.42 Cataract extraction status, left eye; Z98.41 Cataract extraction status, right eye; Z90.12 Acquired absence of left breast and nipple; Z90.710 Acquired absence of both cervix and uterus; Z66 Do not resuscitate; E04.2 Nontoxic multinodular goiter; Z79.4 Long term (current) use of insulin
CPT/HCPCS: 36415; 51701; 70450; 70496; 70498; 80053; 81001; 82948; 85025; 85055; 93005; 99284; A9270; Q9967

== ENCOUNTER 2021-12-12 13:45 | Emergency (ER) | payer MEDICARE, MEDICAID, SELFPAY ==
--- NOTE | ~2021-12-12 | XR_ITS ---
EXAMINATION: XR chest 2V DATE: 12/12/2021 14:51 INDICATION: Weakness and confusion TECHNIQUE: frontal and lateral views of the chest were obtained. COMPARISON: Chest radiograph dated 04/28/2021 FINDINGS: The lungs are clear with no focal airspace opacities, pulmonary edema, pleural effusion or pneumothor ax. Cervical clips at the left axilla Visualized bones and soft tissues are unremarkable. IMPRESSION: 1. No acute cardiopulmonary disease. Reviewed, dictated and finalized at location A.
--- NOTE | 2021-12-12 13:50 | PC.NURSE ---
Pt. placed in room 9 appx. 7 minutes ago; bed alarm under pt., plugged in and status check done; yellow triangle hung outside door. Pt. didn't have a bracelet yet for the yellow clip.
[2021-12-12 13:51] VITALS: BP 177/92; PULSE 90; RESP 17; TEMP 37.1; O2SAT 100
[2021-12-12 13:56] VITALS: PULSE 86
--- NOTE | 2021-12-12 14:11 | ED.GENADULT ---
HPI - General Adult General Chief complaint: Unspecified Stated complaint: sleered speech Time Seen by Provider: 12/12/21 14:10 Source: patient, EMS and RN notes reviewed Mode of arrival: EMS Limitations: no limitations History of Present Illness HPI narrative: Patient 81 years old -Romanian female came from [facility] by ambulance because of weakness and lethargy in the last 24 hours. Patient is telling me the staff at the [facility] sent her to us to make sure she does not have anything unusual but she is asymptomatic and would like to go back to [facility]. She denies any fever, chills, nausea, vomiting, pain, shortness of breath or trauma or headache or new focal deficit. History of CVA with slurred speech. Related Data Home Medications Medication Instructions Recorded Confirmed citalopram 20 mg tablet 20 mg PO DAILY 11/02/20 clonidine 0.3 mg/24 hr weekly 1 patch transdermal WEEKLY 11/02/20 transdermal patch levothyroxine 112 mcg capsule 112 mcg PO DAILY 11/02/20 Allergies Allergy/AdvReac Type Severity Reaction Status Date / Time cephalexin Allergy Unknown Unknown Verified 10/11/21 08:52 Cephalosporins Allergy Unknown Unknown Verified 10/11/21 08:52 codeine Allergy Unknown Unknown Verified 10/11/21 08:52 diazepam Allergy Unknown Unknown Verified 10/11/21 08:52 meperidine Allergy Unknown Unknown Verified 10/11/21 08:52 Penicillins Allergy Unknown Unknown Verified 10/11/21 08:52 Sulfa (Sulfonamide Allergy Unknown Unknown Verified 10/11/21 08:52 Antibiotics) sulfanilamide Allergy Unknown Unknown Verified 10/11/21 08:52 Review of Systems Review of Systems: All systems reviewed & are unremarkable except as noted in HPI and below PMFSH Past Medical History Medical History Anemia Ankle fracture, left Breast cancer CVA (cerebral vascular accident) Depression Diabetes mellitus GERD (gastroesophageal reflux disease) Glaucoma Hip fracture, right HLD (hyperlipidemia) HTN (hypertension) Hypothyroid Migraine Osteoporosis Pneumonia Tuberculosis UTI (urinary tract infection) Surgical History Surgical History H/O bilateral cataract extraction H/O total mastectomy of left breast H/O: hysterectomy History of reconstruction of left breast Hx of appendectomy Family History Family History Sibling Hypertension Carcinoma of colon Family history of thyroid disease Family history of glaucoma Asthma Family history of congestive heart failure Father Family history of coronary artery disease, Onset Age: 72 Patient's father is Other Diabetes mellitus Family history of malignant neoplasm Family history of malignant neoplasm of male breast Social History Social History Smoking status: Never smoker Alcohol intake: never Exam Narrative: General appearance: Well-developed, well-nourished Skin: Normal color Head: Normocephalic, nontraumatic Eyes: Clear conjunctiva ENT: Oropharynx normal, ears normal, nose normal Neck: Supple, nontender Chest and respiratory: Airway patent, no respiratory distress, no accessory muscle use Heart: Regular rate/rhythm Abdomen: Soft, nontender, no organomegaly, quiet bowel sounds Vascular: Normal peripheral pulses, normal capillary refill. Musculoskeletal: Normal range of motion, nontender back Neurologic: Alert and oriented to her name and age only, slurred speech Course Reevaluation(s) Reevaluation #1: Patient is still asymptomatic Date:
--- NOTE | 2021-12-12 14:15 | ECG_ITS ---
Measurements Intervals [place] Rate: 83 P: 64 NH: 149 QRS: -22 QRSD: 76 T: 58 QT: 394 QTc: 465 Interpretive Statements SINUS RHYTHM BORDERLINE LEFT AXIS DEVIATION [QRS AXIS < -20] NONSPECIFIC T-WAVE ABNORMALITY ABNORMAL ECG COMPARED TO ECG 10/11/2021 07:21:41 SINUS RHYTHM NOW PRESENT T-WAVE ABNORMALITY NOW PRESENT Electronically Signed On 12-12-2021 15:34:33 CDT by Tani Valdovinos M.D.
--- NOTE | 2021-12-12 14:41 | PC.NURSE ---
Pt to XRAY via stretcher at this time.
[2021-12-12 15:33] LABS: Add Urine Microscopic? YES; Appearance Urine Cloudy (Clear); Bacteria Urine 2+ /hpf; Bilirubin Urine Negative (Negative); Color Urine Amber (Yellow); Glucose Urine UA 3+ mg/dL (Negative); Ketones Urine Trace mg/dL (Negative); Leukocyte Esterase Ur Trace LEU/UL (Negative); Mucus Urine Moderate /lpf; Nitrate Urine Negative (Negative); Protein Urine 1+ mg/dL (Negative); WBC Urine 16-20 /hpf
[2021-12-12 15:34] LABS: Blood Urine Negative (Negative); Specific Grav Ur 1.032 (1.001-1.035)
[2021-12-12 15:35] LABS: Basophils Absolute Auto 0.1 K/mm3 (0.0-0.1); Basophils Percent Auto 0.5 % (0.2-1.2); Eosinophils Absolute Auto 0.5 K/mm3 (0-0.3); Eosinophils Percent Auto 5.4 % (0-4.4); Hematocrit 40.8 % (37.0-47.0); Hemoglobin 11.8 g/dL (12.0-15.0); Immature Granulocyte Absolute 0.03 K/mm3 (0.00-0.031); Immature Granulocyte Percent A 0.3 % (0-0.5); Lymphocytes Absolute Auto 3.98 K/mm3 (0.9-3.2); Lymphocytes Percent Auto 40.2 % (18.3-44.2); Mean Corpuscular HGB Conc 28.9 g/dl (32-36); Mean Platelet Volume 11.8 fl (7.4-10.4); Monocytes Absolute Auto 0.7 K/mm3 (0.1-0.6); Monocytes Percent Auto 6.8 % (2.6-8.5); Neutrophils Absolute Auto 4.6 K/mm3 (1.3-6.7); Neutrophils Percent Auto 46.8 % (45.5-73.1); Platelet Count Result 329 k/mm3 (150-375); Red Blood Count 5.37 M/mm3 (4.2-5.4); Red Cell Distribution Width 16.9 % (11.5-14.5); White Blood Count 9.9 K/mm3 (4.5-10.0)
[2021-12-12 16:03] LABS: Hypochromasia 1+ (NORMAL); Platelet Estimate Adequate (Adequate)
[2021-12-12 16:04] LABS: Anisocytosis 2+ (NORMAL)
[2021-12-12 16:17] LABS: Schistocytes None Seen (NORMAL)
[2021-12-12] MEDS: levoFLOXacin 500 MG TABLET PO (17:20)
[2021-12-12 17:36] VITALS: BP 170/74; PULSE 89; RESP 17; O2SAT 100
[2021-12-12 17:39] LABS: Lactic Acid Reflex 1.1 mmol/L (0.7-2.0); Partial Thromboplastin Time 22.4 SECONDS (22.3-36.8)
[2021-12-12 17:40] LABS: Alanine Aminotransferase 30 U/L (6-35); Albumin Level 3.2 g/dL (3.5-5.1); Alkaline Phosphatase 117 U/L (38-126); Anion Gap 9 mmol/L (8-16); Aspartate Amino Transferase 32 U/L (14-36); Bilirubin,Total 0.3 mg/dL (0.2-1.3); Blood Urea Nitrogen 13 mg/dL (7-17); CRP < 0.5 mg/dL (<1.0); Calcium 8.9 mg/dL (8.4-10.2); Carbon Dioxide 26 mmol/L (22-30); Chloride 105 mmol/L (98-107); Estimated CRCL calculation 50 ml/min; Estimated Glomerular Filt Rate > 60; Glucose 180 mg/dL (65-110); Potassium 3.6 mmol/L (3.4-5.0); Prothrombin Time 13.2 Seconds (11.1-14.7); Sodium 140 mmol/L (137-145)
[2021-12-12 17:49] LABS: Troponin I < 0.012 ng/mL (0.000-0.034)
[2021-12-12 18:12] VITALS: BP 186/94
== END 2021-12-12 18:19 ==
PROVIDERS: Emergency Provider Emergency Medicine
DX: N39.0 Urinary tract infection, site not specified (principal); E11.9 Type 2 diabetes mellitus without complications; E78.5 Hyperlipidemia, unspecified; I10 Essential (primary) hypertension; I69.928 Other speech and language deficits following unspecified cerebrovascular disease; E03.9 Hypothyroidism, unspecified; D64.9 Anemia, unspecified; K21.9 Gastro-esophageal reflux disease without esophagitis; M81.0 Age-related osteoporosis without current pathological fracture; H40.9 Unspecified glaucoma; F32.A Depression, unspecified; Z85.3 Personal history of malignant neoplasm of breast; Z87.01 Personal history of pneumonia (recurrent); Z86.11 Personal history of tuberculosis; Z98.42 Cataract extraction status, left eye; Z98.41 Cataract extraction status, right eye; Z90.12 Acquired absence of left breast and nipple; Z90.710 Acquired absence of both cervix and uterus; R94.31 Abnormal electrocardiogram [ECG] [EKG]; Z79.4 Long term (current) use of insulin
CPT/HCPCS: 36415; 71046; 80053; 81001; 83605; 84484; 85025; 85610; 85730; 86140; 87040; 87077; 87086; 87186; 93005; 99284; A9270

== ENCOUNTER 2021-12-21 19:23 | Emergency (ER) | payer MEDICARE, MEDICAID, SELFPAY ==
--- NOTE | ~2021-12-21 | CT_ITS ---
EXAMINATION: CT facial bones wo con DATE: 12/21/2021 20:07 INDICATION: Face injury. TECHNIQUE: Computed tomography (CT) of the facial bones and maxillofacial region was performed withou t intravenous contrast. Automated exposure control and iterative reconstruction technique were employ ed. The dose-length product was 316.47 mGy-cm. COMPARISON: None. FINDINGS: There is left periorbital and left cheek soft tissue swelling. There are likely changes of ocular lens replacement surgeries. There are old fracture deformities of the nasal bones. There is ri ghtward deviation of the nasal septum. No acute fracture. There is mild mucosal thickening in the eth moid sinuses. The mastoid air cells are normal. There is severe cervical spondylosis. IMPRESSION: 1. No acute fracture. Reviewed, dictated and finalized at location A. IMPRESSION: 1. No acute fracture.
--- NOTE | ~2021-12-21 | CT_ITS ---
EXAMINATION: CT brain wo con DATE: 12/21/2021 19:58 INDICATION: Head injury. TECHNIQUE: Computed tomography (CT) of the head was performed without intravenous contrast. The mA wa s adjusted according to patient size. Iterative reconstruction technique was employed. The dose-lengt h product was 605.33 mGy-cm. 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 There is an old infarct in the meghann. There are ol d infarcts in the right basal ganglia and left thalamus. There are scattered areas of low attenuation in the cerebral white matter. There is an acute extra-axial hematoma overlying left frontal and julianne etal lobes with maximum thickness of 9 mm. There is no acute ischemic infarct or abnormal mass lesion . The ventricles are normal in size. There are likely changes of ocular lens replacement surgeries. T he paranasal sinuses are clear. The mastoid air cells are normal. There is left frontal scalp soft ti ssue swelling. There is left cheek soft tissue swelling. IMPRESSION: 1. Acute extra-axial hematoma overlying left frontal and parietal lobes, most likely subdural. I call ed this result to Dr. Clemons. 2. 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 3. Moderate nonspecific cerebral white matter disease, which likely represents chronic small vessel i schemic disease. Reviewed, dictated and finalized at location A. IMPRESSION: 1. Acute extra-axial hematoma overlying left frontal and parietal lobes, most l ikely subdural. I called this result to Dr. Clemons. 2. 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 3. Moderate nonspecific cerebral white matter disease, which likely represents chronic small vessel ischemic disease.
[2021-12-21 19:19] VITALS: PULSE 82; RESP 18; TEMP 36.6; O2SAT 100
[2021-12-21 19:28] VITALS: BP 182/74
--- NOTE | 2021-12-21 20:04 | ED.FALL ---
HPI - Fall General Chief Complaint: Fall Stated Complaint: glf fell on face Time Seen by Provider: 12/21/21 19:35 History of Present Illness HPI Narrative: Patient is a 81-year-old female who presents ER status post fall. Patient has chronic left-sided deficit from CVA with mild expressive aphasia. She was in her wheelchair trying to put on some shoes when she fell forward striking her head on the ground. She has swelling of her left lower lip and her left periorbital region. She denies losing consciousness when she fell. She is on a baby aspirin. Denies headache or change in vision or change in hearing. No new injury or deficit according patient. Related Data Home Medications Medication Instructions Recorded Confirmed citalopram 20 mg tablet 20 mg PO DAILY 11/02/20 clonidine 0.3 mg/24 hr weekly 1 patch transdermal WEEKLY 11/02/20 transdermal patch levothyroxine 112 mcg capsule 112 mcg PO DAILY 11/02/20 Allergies Allergy/AdvReac Type Severity Reaction Status Date / Time cephalexin Allergy Unknown Unknown Verified 10/11/21 08:52 Cephalosporins Allergy Unknown Unknown Verified 10/11/21 08:52 codeine Allergy Unknown Unknown Verified 10/11/21 08:52 diazepam Allergy Unknown Unknown Verified 10/11/21 08:52 meperidine Allergy Unknown Unknown Verified 10/11/21 08:52 Penicillins Allergy Unknown Unknown Verified 10/11/21 08:52 Sulfa (Sulfonamide Allergy Unknown Unknown Verified 10/11/21 08:52 Antibiotics) sulfanilamide Allergy Unknown Unknown Verified 10/11/21 08:52 Review of Systems Review of Systems: All systems reviewed & are unremarkable except as noted in HPI and below Constitutional: Constitutional: Denies chills, Denies fatigue and Denies fever(s) ENT: Denies nasal congestion and Denies sore throat Cardiovascular: Cardiovascular: Denies chest pain, Denies rapid heart rate and Denies radiating jaw, neck or arm pain Respiratory: Respiratory: Denies cough and Denies dyspnea Gastrointestinal: Gastrointestinal: Denies abdominal pain, Denies nausea and Denies vomiting Musculoskeletal: Musculoskeletal: Reports myalgias (Chronic left arm pain), Denies arthralgias and Denies joint swelling Neurologic: Denies syncope, Denies headache(s) and Reports focal weakness (Left side deficits from previous stroke.) [facility] Past Medical History Medical History Anemia Ankle fracture, left Breast cancer CVA (cerebral vascular accident) Depression Diabetes mellitus GERD (gastroesophageal reflux disease) Glaucoma Hip fracture, right HLD (hyperlipidemia) HTN (hypertension) Hypothyroid Migraine Osteoporosis Pneumonia Tuberculosis UTI (urinary tract infection) Surgical History Surgical History H/O bilateral cataract extraction H/O total mastectomy of left breast H/O: hysterectomy History of reconstruction of left breast Hx of appendectomy Family History Family History Sibling Hypertension Carcinoma of colon Family history of thyroid disease Family history of glaucoma Asthma Family history of congestive heart failure Father Family history of coronary artery disease, Onset Age: 72 Patient's father is Other Diabetes mellitus Family history of malignant neoplasm Family history of malignant neoplasm of male breast Social History Social History Smoking status: Never smoker Alcohol intake: never Exam Narrative: GENERAL: Chronically ill-appearing, well-nourished, and in no acute distress. HEAD: Normocephalic, atraumatic. EYES: PERRLA and EOMI. left periorbital edema ENT: Mucous membranes moist. Swelling of left lower lip. NECK: Supple. No midline tenderness. CHEST: Clear to auscultation. No respiratory distress. HEART: Regular rate and rhythm. Normal peripheral p
--- NOTE | 2021-12-21 20:14 | PC.NURSE ---
[facility] called for update. No new updates at this time other than pt is here in ER awaiting results. [facility] landline in [facility] cell phone number [phone]
[2021-12-21 20:44] VITALS: BP 168/70; PULSE 86; RESP 30; O2SAT 85
[2021-12-21] MEDS: cloNIDine HCL 0.2 MG TABLET PO (20:58)
[2021-12-21 21:20] VITALS: BP 169/74; PULSE 94
[2021-12-21] MEDS: niCARdipine 20 MG/200 ML 20 MG/200 ML BAG 50 MG IV CONT (21:20)
--- NOTE | 2021-12-21 21:36 | PC.NURSE ---
(julianna) Jhony Levin from [facility] called for report on pt. This RN informed [facility] being [facility] to [facility]
== END 2021-12-21 21:20 | disposition short-term general hospital (02) ==
PROVIDERS: Emergency Provider Emergency Medicine
DX: S06.5X0A Traumatic subdural hemorrhage without loss of consciousness, initial encounter (principal); E11.9 Type 2 diabetes mellitus without complications; E78.5 Hyperlipidemia, unspecified; E03.9 Hypothyroidism, unspecified; I10 Essential (primary) hypertension; G95.19 Other vascular myelopathies; W05.0XXA Fall from non-moving wheelchair, initial encounter
CPT/HCPCS: 70450; 70486; 96365; 99291; A9270; L0140